=== PATIENT | male | born 1995 | race Caucasian/White ===

== ENCOUNTER 2017-04-09 17:47 | Emergency (ER) | payer OTHER ==
[~2017-04-09] VITALS: Ht 195.6 cm; Wt 123.7 kg
[~2017-04-09 17:47] MED LIST: CEPH-368 PO; OMEP10CA4 PO; OXYC-302 PO
[2017-04-09 17:49] VITALS: BP 167/104
[2017-04-09] MEDS ORDERED: ONDANSETRON ODT 4 MG ONE (18:21)
[2017-04-09] MEDS ORDERED: KETOROLAC 30 MG/1 ML ONE (18:21)
[2017-04-09] MEDS ORDERED: HYDROcodone/APAP 5/325 TABLET ONE (18:21)
[2017-04-09] MEDS ORDERED: HYDROcodone/APAP 5/325 TABLET PO ONE (18:30)
[2017-04-09] MEDS ORDERED: ONDANSETRON ODT 4 MG PO ONE (18:30)
[2017-04-09] MEDS ORDERED: KETOROLAC 30 MG/1 ML IM ONE (18:30)
== END 2017-04-09 19:11 | disposition home or self-care (01) ==
LOC: ED 19:00
DX: S39.012A Strain of muscle, fascia and tendon of lower back, initial encounter (principal); I10 Essential (primary) hypertension; X50.0XXA Overexertion from strenuous movement or load, initial encounter; Y93.89 Activity, other specified; Y92.89 Other specified places as the place of occurrence of the external cause; Y99.8 Other external cause status
CPT/HCPCS: 72110; 96372; 99284; J1885; Q0162

== ENCOUNTER 2018-07-08 14:14 | Emergency (ER) | payer MEDICAID ==
[~2018-07-08] VITALS: Ht 195.6 cm; Wt 113.7 kg
[2018-07-08 14:17] VITALS: BP 142/109
[2018-07-08] MEDS ORDERED: LIDOCAINE-MPF 1%, 5ML INFIL ONE (14:30)
[2018-07-08] MEDS ORDERED: LIDOCAINE-MPF 1%, 5ML ONE (14:38)
--- NOTE | 2018-07-08 14:42 | NUR ---
LIDOCAINE GIVEN TO BARTOLO COOK.
--- NOTE | 2018-07-08 15:12 | NUR ---
DEVYN COOK AT BEDSIDE PERFORMING I&D.
== END 2018-07-08 15:36 | disposition home or self-care (01) ==
LOC: ED 15:23
DX: S30.0XXA Contusion of lower back and pelvis, initial encounter (principal); L05.01 Pilonidal cyst with abscess; F17.200 Nicotine dependence, unspecified, uncomplicated; W01.0XXA Fall on same level from slipping, tripping and stumbling without subsequent striking against object, initial encounter; Y93.89 Activity, other specified; Y92.89 Other specified places as the place of occurrence of the external cause; Y99.8 Other external cause status
CPT/HCPCS: 10080; 72220; 99284

== ENCOUNTER 2018-09-25 10:01 | Emergency (ER) | payer SELFPAY ==
[~2018-09-25] VITALS: Ht 195.6 cm; Wt 112.8 kg
[2018-09-25] MEDS ORDERED: ONDANSETRON 2MG/ML, 2ML IVPush ONE (11:00)
[2018-09-25] MEDS ORDERED: SODIUM CHLORIDE FLUSH 10ML SYR IVF ONE (11:00)
[2018-09-25] MEDS ORDERED: KETOROLAC 30 MG/1 ML IVPush ONE (11:00)
[2018-09-25] MEDS ORDERED: KETOROLAC 30 MG/1 ML ONE (11:08)
[2018-09-25] MEDS ORDERED: ONDANSETRON 2MG/ML, 2ML ONE (11:08)
[2018-09-25 11:12] LABS: BASOPHILS # (AUTO) 0.02 x10^3/uL (0-0.1); BASOPHILS % (AUTO) 0 % (0-1); EOSINOPHILS # (AUTO) 0.05 x10^3/uL (0-0.4); EOSINOPHILS % (AUTO) 1 % (1-7); LYMPHOCYTES # (AUTO) 2.47 x10^3/uL (1-3.4); LYMPHOCYTES % (AUTO) 25 % (22-44); MD NO; MEAN CORPUSCULAR HEMOGLOBIN 30.6 pg (27.5-34.5); MEAN CORPUSCULAR HGB CONC 34.2 g/dL (33.2-36.2); MEAN CORPUSCULAR VOLUME 89.6 fL (81-97); MEAN PLATELET VOLUME 7.4 fL (7.4-10.4); MONOCYTES # (AUTO) 1.02 x10^3/uL (0.2-0.8); MONOCYTES % (AUTO) 10 % (2-9); NEUTROPHILS % (AUTO) 64 % (42-75); PLATELET COUNT 287 x10^3/uL (130-400); RED BLOOD COUNT 5.11 x10^6/uL (4.38-5.82); RED CELL DISTRIBUTION WIDTH 13.4 % (9.4-14.8)
[2018-09-25 11:25] LABS: ALANINE AMINOTRANSFERASE 32 U/L (12-78); ALBUMIN 3.6 g/dL (3.4-5.0); ANION GAP 6 mmol/L (5-15); CALCIUM 8.4 mg/dL (8.5-10.1); CHLORIDE 111 mmol/L (98-107); CREATININE 0.85 mg/dL (0.7-1.3)
[2018-09-25 11:26] LABS: ALKALINE PHOSPHATASE 88 U/L (45-117); BILIRUBIN,TOTAL 0.6 mg/dL (0.2-1.0); TOTAL PROTEIN 7.6 g/dL (6.4-8.2)
--- NOTE | 2018-09-25 11:36 | NUR ---
NEED IV FOR CT.
--- NOTE | 2018-09-25 11:46 | NUR ---
TASK RN: FIRST CONTACT WITH PT. PIV ESTABLISHED. PT TOLERATED WITH NO COMPLICATIONS.
--- NOTE | 2018-09-25 13:37 | NUR ---
PT. WAS GIVEN DISCHARGE INSTRUCTIONS AND SCRIPTS WITH UNDERSTANDING VERBALIZED ALONG WITH WILLINGNESS TO COMPLY. PT.'S IV WAS DCD', CATH TIP INTACT. PRESSURE HELD WITH HEMOSTASIS ACHIEVED. PT. WAS AMBULATORY TO THE DISCHARGE DESK. VSS.
[2018-09-25 13:40] VITALS: BP 121/73
[2018-09-25] MEDS ORDERED: OMNIPAQUE 350 MG/ML, 150 ML BOTTLE ONE (14:49)
== END 2018-09-25 13:43 | disposition home or self-care (01) ==
LOC: ED 10:44
DX: K52.9 Noninfective gastroenteritis and colitis, unspecified (principal); F17.200 Nicotine dependence, unspecified, uncomplicated; K21.9 Gastro-esophageal reflux disease without esophagitis
CPT/HCPCS: 36415; 74177; 80053; 83690; 85025; 96374; 96375; 99284; J1885; J2405; Q9967

== ENCOUNTER 2018-11-05 17:37 | Emergency (ER) | payer SELFPAY ==
[~2018-11-05] VITALS: Ht 195.6 cm; Wt 118.3 kg
[2018-11-05] MEDS ORDERED: SODIUM CHLORIDE FLUSH 10ML SYR IVF ONE (19:00)
[2018-11-05 19:01] LABS: BASOPHILS # (AUTO) 0.04 x10^3/uL (0-0.1); BASOPHILS % (AUTO) 0 % (0-1); EOSINOPHILS # (AUTO) 0.28 x10^3/uL (0-0.4); EOSINOPHILS % (AUTO) 2 % (1-7); LYMPHOCYTES # (AUTO) 3.14 x10^3/uL (1-3.4); LYMPHOCYTES % (AUTO) 25 % (22-44); MD NO; MEAN CORPUSCULAR HEMOGLOBIN 31.2 pg (27.5-34.5); MEAN CORPUSCULAR VOLUME 89.2 fL (81-97); MEAN PLATELET VOLUME 7.7 fL (7.4-10.4); MONOCYTES # (AUTO) 0.89 x10^3/uL (0.2-0.8); MONOCYTES % (AUTO) 7 % (2-9); NEUTROPHILS # (AUTO) 8.26 x10^3/uL (1.8-6.8); NEUTROPHILS % (AUTO) 66 % (42-75); PLATELET COUNT 315 x10^3/uL (130-400); RED BLOOD COUNT 5.07 x10^6/uL (4.38-5.82); RED CELL DISTRIBUTION WIDTH 12.9 % (9.4-14.8)
[2018-11-05 19:08] LABS: ALANINE AMINOTRANSFERASE 47 U/L (12-78); ALBUMIN 3.7 g/dL (3.4-5.0); ANION GAP 5 mmol/L (5-15); CHLORIDE 111 mmol/L (98-107); CREATININE 0.99 mg/dL (0.7-1.3)
[2018-11-05 19:11] LABS: ALKALINE PHOSPHATASE 82 U/L (45-117); BILIRUBIN,TOTAL 0.4 mg/dL (0.2-1.0); TOTAL PROTEIN 7.7 g/dL (6.4-8.2)
--- NOTE | 2018-11-05 20:30 | NUR ---
PT TO ROOM FROM LOBBY
[2018-11-05] MEDS ORDERED: METOCLOPRAMIDE 5 MG/ML, 2ML IVPush ONE (21:00)
[2018-11-05] MEDS ORDERED: DIPHENHYDRAMINE 50 MG/ML, 1ML IVPush ONE (21:00)
[2018-11-05] MEDS ORDERED: DIPHENHYDRAMINE 50 MG/ML, 1ML ONE (21:10)
[2018-11-05] MEDS ORDERED: METOCLOPRAMIDE 5 MG/ML, 2ML ONE (21:10)
[2018-11-05] MEDS ORDERED: IBUP-1222 PO (21:19)
[2018-11-05] MEDS ORDERED: KETOROLAC 30 MG/1 ML IVPush ONE (21:30)
[2018-11-05] MEDS ORDERED: OXYcodone/APAP 10/325MG TABLET PO ONE (21:30)
[2018-11-05] MEDS ORDERED: KETOROLAC 30 MG/1 ML ONE (21:36)
[2018-11-05] MEDS ORDERED: METHOCARBAMOL 750 MG TABLET ONE (22:29)
[2018-11-05] MEDS ORDERED: OXYcodone/APAP 10/325MG TABLET ONE (22:29)
[2018-11-05] MEDS ORDERED: METHOCARBAMOL 750 MG TABLET PO ONE (22:30)
[2018-11-05 22:36] VITALS: BP 139/78
== END 2018-11-05 22:38 | disposition home or self-care (01) ==
LOC: ED 20:54
DX: G44.209 Tension-type headache, unspecified, not intractable (principal); I10 Essential (primary) hypertension; K21.9 Gastro-esophageal reflux disease without esophagitis
CPT/HCPCS: 36415; 70450; 80053; 85025; 96374; 96375; 99284; J1200; J1885; J2765

== ENCOUNTER 2019-01-02 15:43 | Emergency (ER) | payer SELFPAY ==
[~2019-01-02] VITALS: Ht 195.6 cm; Wt 116.0 kg
[2019-01-02 15:43] VITALS: BP 152/73
[~2019-01-02 15:43] MED LIST changes: +IBUP-1222 PO
[2019-01-02] MEDS ORDERED: HYDROcodone/APAP 5/325 TABLET PO ONE (16:00)
[2019-01-02] MEDS ORDERED: HYDROcodone/APAP 5/325 TABLET ONE (16:10)
== END 2019-01-02 17:18 | disposition home or self-care (01) ==
LOC: ED 17:00
DX: H60.501 Unspecified acute noninfective otitis externa, right ear (principal); I10 Essential (primary) hypertension
CPT/HCPCS: 70450; 99284

== ENCOUNTER 2019-01-10 14:09 | Emergency (ER) | payer SELFPAY ==
[~2019-01-10] VITALS: Ht 195.6 cm; Wt 112.0 kg
--- NOTE | 2019-01-10 14:36 | NUR ---
BIB EMS from [facility], dx w/ right side mastoiditis, transfered for eval by ENT. Resting on gurney, pain controlled, vss, call light within reach.
--- NOTE | 2019-01-10 15:16 | NUR ---
CARE FOR DC ONLY PROVIDED. PT IN NO ACUTE DISTRESS, IV DC'D WITH CANNULA INTACT, REVIEWED DC INSTRUCTIONS WITH PT, UNDERSTANDING VERBALIZED. PT LEFT AMB, GAIT STEADY.
[2019-01-10 15:17] VITALS: BP 125/81
== END 2019-01-10 15:19 | disposition home or self-care (01) ==
LOC: ED 15:13
DX: H92.01 Otalgia, right ear (principal); F17.200 Nicotine dependence, unspecified, uncomplicated; K21.9 Gastro-esophageal reflux disease without esophagitis
CPT/HCPCS: 99283

== ENCOUNTER 2019-02-13 10:54 | Emergency (ER) | payer SELFPAY ==
[~2019-02-13] VITALS: Ht 195.6 cm; Wt 113.8 kg
[2019-02-13 10:58] VITALS: BP 142/89
== END 2019-02-13 12:00 | disposition home or self-care (01) ==
LOC: ED 11:29
DX: S93.401A Sprain of unspecified ligament of right ankle, initial encounter (principal); S90.01XA Contusion of right ankle, initial encounter; W20.8XXA Other cause of strike by thrown, projected or falling object, initial encounter; Y93.89 Activity, other specified; Y92.69 Other specified industrial and construction area as the place of occurrence of the external cause; Y99.8 Other external cause status
CPT/HCPCS: 99283

== ENCOUNTER 2019-06-15 16:40 | Emergency (ER) | payer MEDICAID, OTHER ==
[~2019-06-15] VITALS: Ht 195.6 cm; Wt 120.3 kg
[~2019-06-15 16:40] MED LIST changes: -OMEP10CA4 PO; +OMEP10CA5 PO
[2019-06-15 16:44] VITALS: BP 165/92
[2019-06-15] MEDS ORDERED: DEXAMETHASONE 4 MG TABLET PO ONE (17:09)
[2019-06-15] MEDS ORDERED: DEXAMETHASONE 4 MG TABLET ONE (17:28)
== END 2019-06-15 17:40 | disposition home or self-care (01) ==
LOC: ED 17:20
DX: J02.0 Streptococcal pharyngitis (principal); I10 Essential (primary) hypertension; K21.9 Gastro-esophageal reflux disease without esophagitis; Z87.19 Personal history of other diseases of the digestive system
CPT/HCPCS: 99283

== ENCOUNTER 2019-12-12 18:08 | Emergency (ER) | payer MEDICAID ==
[~2019-12-12] VITALS: Ht 195.6 cm; Wt 126.8 kg
[2019-12-12] MEDS ORDERED: KETOROLAC 30 MG/1 ML IM ONE (18:30)
[2019-12-12] MEDS ORDERED: LISI40TA PO (18:37)
[2019-12-12] MEDS ORDERED: KETOROLAC 30 MG/1 ML ONE (19:19)
--- NOTE | 2019-12-12 19:33 | NUR ---
TORADOL GIVEN PER EMAR.
[2019-12-12 20:06] VITALS: BP 135/82
== END 2019-12-12 20:09 | disposition home or self-care (01) ==
LOC: ED 19:50
DX: S90.32XA Contusion of left foot, initial encounter (principal); F17.210 Nicotine dependence, cigarettes, uncomplicated; W23.1XXA Caught, crushed, jammed, or pinched between stationary objects, initial encounter; Y93.89 Activity, other specified; Y92.009 Unspecified place in unspecified non-institutional (private) residence as the place of occurrence of the external cause; Y99.8 Other external cause status
CPT/HCPCS: 73630; 96372; 99283; J1885

== ENCOUNTER 2019-12-27 17:10 | Emergency (ER) | payer MEDICAID ==
[~2019-12-27] VITALS: Ht 195.6 cm; Wt 125.7 kg
[~2019-12-27 17:10] MED LIST changes: +LISI40TA PO
[2019-12-27 17:18] VITALS: BP 140/89
--- NOTE | 2019-12-27 18:57 | NUR ---
PT LEFT AMA
== END 2019-12-27 18:04 | disposition left against medical advice (07) ==
LOC: ED 17:58
DX: R42 Dizziness and giddiness (principal); Z53.21 Procedure and treatment not carried out due to patient leaving prior to being seen by health care provider
CPT/HCPCS: 82962; 93005

== ENCOUNTER 2020-12-07 17:07 | Emergency (ER) | payer MEDICAID ==
[~2020-12-07] VITALS: Ht 195.6 cm; Wt 128.0 kg
[~2020-12-07 17:07] MED LIST changes: -LISI40TA PO; +LISI40TA9 PO; -OXYC-302 PO; +OXYC1TAB14 PO
[2020-12-07 17:15] VITALS: BP 171/100
[2020-12-07] MEDS ORDERED: KETOROLAC 30 MG/1 ML IM ONE (20:00)
[2020-12-07] MEDS ORDERED: KETOROLAC 30 MG/1 ML ONE (20:19)
--- NOTE | 2020-12-07 20:39 | NUR ---
Patient/Caregiver given discharge instructions and they have confirmed that they understand the instructions. Patient ambulatory with steady gait. NAD, all questions answered appropriately, denies additional needs at this time. No personal belongings left in room after discharge.
== END 2020-12-07 20:40 | disposition home or self-care (01) ==
LOC: ED 17:38
DX: H66.3X1 Other chronic suppurative otitis media, right ear (principal); H72.91 Unspecified perforation of tympanic membrane, right ear; K21.9 Gastro-esophageal reflux disease without esophagitis; I10 Essential (primary) hypertension
CPT/HCPCS: 70480; 96372; 99284; J1885

== ENCOUNTER 2021-01-24 21:01 | Emergency (ER) | payer MEDICAID ==
[~2021-01-24] VITALS: Ht 195.6 cm; Wt 125.0 kg
[2021-01-24 21:07] VITALS: BP 173/80
[2021-01-24] MEDS ORDERED: LIDOCAINE-MPF 1%, 5ML ONE (21:14)
--- NOTE | 2021-01-24 21:22 | NUR ---
CECILIO PULLED FOR ERMD ADMIN.
[2021-01-24] MEDS ORDERED: DIPH,PERTUSS(ACELL),TET VAC/PF 0.5 ML IM-VACC ONE ×2 (21:30→21:44)
[2021-01-24] MEDS ORDERED: LIDOCAINE 1%, 10ML INFIL ONE (21:30)
[2021-01-24] MEDS ORDERED: NEOSPORIN OINT. PKT 1 PACKET ONE (21:47)
== END 2021-01-24 22:00 | disposition home or self-care (01) ==
LOC: ED 21:19
DX: S61.211A Laceration without foreign body of left index finger without damage to nail, initial encounter (principal); K21.9 Gastro-esophageal reflux disease without esophagitis; I10 Essential (primary) hypertension; F17.210 Nicotine dependence, cigarettes, uncomplicated; W26.0XXA Contact with knife, initial encounter; Y93.89 Activity, other specified; Y92.009 Unspecified place in unspecified non-institutional (private) residence as the place of occurrence of the external cause; Y99.8 Other external cause status
CPT/HCPCS: 12041; 90471; 90715; 99284; 99406